=== PATIENT | female | born 1985 | race Caucasian/White ===

== ENCOUNTER 2019-02-21 12:30 | Emergency (ER) | payer MEDICAID, OTHER ==
[2019-02-21 12:31] VITALS: BMI 29.7
[2019-02-21] MEDS ORDERED: Sodium Chloride 0.9% 500 ML IV ONE (13:04)
[2019-02-21] MEDS ORDERED: Dexamethasone 4 mg/1 ml IVP STA (13:05)
--- NOTE | 2019-02-21 13:12 | C.PDOC ---
History Of Present Illness 33 y/o female presents to ED complaining of a sore throat x4 days, progressively gotten worse over the past 2 days, associated with fever, difficulty swallowing, and swelling of the neck. Patient denies vomiting, diarrhea, shortness of breath, or chest pain. Time Seen by Provider: 02/21/19 12:53 Chief Complaint (Nursing): ENT Problem History Per: Patient History/Exam Limitations: None Onset/Duration Of Symptoms: Days, Persistent Current Symptoms Are (Timing): Worse Pain Scale Rating Of: 8 Anticoagulant/Antiplatlet Use?: No Past Medical History Reviewed: Historical Data, Nursing Documentation, Vital Signs Vital Signs: Last Vital Signs Temp 100.2 F H 02/21/19 12:38 Pulse 109 H 02/21/19 12:38 Resp 20 02/21/19 12:38 BP 152/88 H 02/21/19 12:38 Pulse Ox 98 02/21/19 12:38 - Medical History PMH: No Chronic Diseases Family History: States: No Known Family Hx - Social History Hx Alcohol Use: Yes Hx Substance Use: Yes - Immunization History Hx Tetanus Toxoid Vaccination: No Hx Influenza Vaccination: No Hx Pneumococcal Vaccination: No Review Of Systems Except As Marked, All Systems Reviewed And Found Negative. Constitutional: Positive for: Fever ENT: Positive for: Throat Pain (Sore throat), Other (Difficulty swallowing) Cardiovascular: Negative for: Chest Pain Respiratory: Negative for: Shortness of Breath Gastrointestinal: Negative for: Vomiting, Diarrhea Musculoskeletal: Positive for: Other (Neck swelling) Physical Exam - Physical Exam Appears: Non-toxic, No Acute Distress Skin: Warm, Dry, No Rash Head: Atraumatic, Normacephalic Eye(s): bilateral: Normal Inspection Ear(s): Bilateral: Normal Oral Mucosa: Moist Throat: Other (Moderate swelling, erythema, and tenderness to the right to nsillar, (+)uvula deviation) Neck: Normal ROM, Supple Lymphatic: Other ((+) swollen anterior cervical lymphadenopathy) Chest: Symmetrical, No Tenderness Cardiovascular: Rhythm Regular, No Friction Rub, No Murmur Respiratory: Normal Breath Sounds, No Rales, No Rhonchi, No Wheezing Gastrointestinal/Abdominal: Bowel Sounds (active), Soft, No Tenderness Back: Normal Inspection, No CVA Tenderness Extremity: Normal ROM, No Tenderness, No Swelling Extremity: Bilateral: Atraumatic, Normal ROM Neurological/Psych: Oriented x3, Normal Speech, Normal Motor Gait: Steady ED Course And Treatment - Laboratory Results Result Diagrams: 02/21/19 13:27 02/21/19 13:28 O2 Sat by Pulse Oximetry: 98 (RA) Pulse Ox Interpretation: Normal - CT Scan/US Soft Tissue Neck CT Other Rad Studies (CT/US): Read By Radiologist, Radiology Report Reviewed CT/US Interpretation: FINDINGS: NASOPHARYNX: Unremarkable. SUPRAHYOID NECK: There is moderate enlargement of the palatine and lingular tonsils suggestive of tonsillitis. No evidence of peritonsillar abscess. No evidence of abscess formation in the naso-oropharynx. Mild thickening of the epiglottic and aryepiglottic folds noted. INFRAHYOID NECK: Unremarkable larynx, hypopharynx, and supraglottic space. Vocal cords intact. MASS: None. GLANDS: Parotid and submandibular glands unremarkable. Normal size thyroid gland, without nodule. LYMPH NODES: Mildly enlarged level 2 lymph nodes noted bilaterally likely reactive from tonsillitis. CERVICAL SPINE: No fracture or focal lesion. VASCULAR STRUCTURES: Unremarkable. OTHER FINDINGS: None. IMPRESSION: Findings suggestive of tonsillitis. No evidence of peritonsillar abscess or fluid collection. Mildly enlarged reactive lymph nodes at mid to upper neck. Medical Decision Making Medical Decision Making: Plan: --Soft Neck CT --Labs --Decadron 10 mg IVP --IV fluids --Toradol [address] scan was ordered for r/o ravinder-tonsillar abscess. CT scan shows only tonsillitis Results were discussed with the patient. On re-exam, the patient reports improvement of symptoms. Lungs are CTA, heart is RRR, abdomen is soft, non- tender and the patient is tolerating Po well. Pt is ambulatory in the ED with steady gait. Follow up with the medical doctor within 1-2 days. return if worsened. Disposition - Disposition Referrals: Jg Christine MD [Staff Provider] - Disposition: HOME/ ROUTINE Disposition Time: 16:01 Condition: GOOD Additional Instructions: Follow up with the medical doctor within 1-2 days. return if worsened. Prescriptions: Clindamycin [Cleocin] 300 mg PO TID #30 cap Ibuprofen [Motrin] 1 tab PO TID PRN #30 tab PRN Reason: Pain predniSONE [Prednisone] 10 mg PO BID #10 tab Instructions: Sore Throat, Adult (DC) Forms: [facility] (Taiwanese), Work Excuse - Clinical Impression Clinical Impression: Tonsillitis - PA / OUTSOLE BEVELER / Resident Statement MD/DO has reviewed & agrees with the documentation as recorded. - Scribe Statement The provider has reviewed the documentation as recorded by the Scribe Madiha Sawyer All medical record entries made by the Ward[employer]rol were at my direction and personally dictated by me. I have reviewed the chart and agree that the record accurately reflects my personal performance of the history, physical exam, medical decision making, and the department course for this patient. I have also personally directed, reviewed, and agree with the discharge instructions and dis position.
[2019-02-21] MEDS ORDERED: Iodixanol 320 MG/ML 100 ML BOTTLE IV ONE (13:15)
[2019-02-21] MEDS ORDERED: Sodium Chloride 0.9% 1,000 ML ONE (13:23)
[2019-02-21 13:39] LABS: BASO # 0.1 K/uL (0.0-0.2); BASO % 0.4 % (0.0-2.0); EOS % 0.2 % (0.0-4.0); HEMOGLOBIN 14.1 g/dL (11.0-16.0); LYMPH # 1.9 K/uL (1.0-4.3); LYMPH % 11.4 % (20.0-40.0); MEAN CELL VOLUME 87.5 fL (81.0-99.0); MEAN CORPUSCULAR HGB CONC 34.2 g/dL (33.0-37.0); MEAN PLATELET VOLUME 7.6 fL (7.2-11.7); MONO # 1.9 K/uL (0.0-0.8); MONO % 11.4 % (0.0-10.0); NEUT % 76.6 % (50.0-75.0); RBC 4.71 Mil/uL (3.80-5.20); RED CELL DISTRIBUTION WIDTH 12.9 % (11.5-14.5)
[2019-02-21 13:43] LABS: ALB/GLOB RATIO 1.4 (1.0-2.1); ALBUMIN 4.5 g/dL (3.5-5.0); ALT/SGPT 7 U/L (9-52); AST/SGOT 21 U/L (14-36); BLOOD UREA NITROGEN 6 mg/dL (7-17); GFR NON-AFRICAN AMERICAN > 60
--- NOTE | 2019-02-21 15:06 | CT ---
Date of service: 02/21/2019 PROCEDURE: CT NECK WITH CONTRAST HISTORY: sore throat, r/o ravinder-tonsillar abscess COMPARISON: None available. TECHNIQUE: CT of the neck with intravenous contrast. Coronal and sagittal reformats generated. Intravenous contrast dose: 100 mL of Visipaque 320 intravenously. Radiation dose: Total exam DLP = 377.53 mGy-cm. This CT exam was performed using one or more of the following dose reduction techniques: Automated exposure control, adjustment of the mA and/or kV according to patient size, and/or use of iterative reconstruction technique. FINDINGS: NASOPHARYNX: Unremarkable. SUPRAHYOID NECK: There is moderate enlargement of the palatine and lingular tonsils suggestive of tonsillitis. No evidence of peritonsillar abscess. No evidence of abscess formation in the naso-oropharynx. Mild thickening of the epiglottic and aryepiglottic folds noted. INFRAHYOID NECK: Unremarkable larynx, hypopharynx, and supraglottic space. Vocal cords intact. MASS: None. GLANDS: Parotid and submandibular glands unremarkable. Normal size thyroid gland, without nodule. LYMPH NODES: Mildly enlarged level 2 lymph nodes noted bilaterally likely reactive from tonsillitis. CERVICAL SPINE: No fracture or focal lesion. VASCULAR STRUCTURES: Unremarkable. OTHER FINDINGS: None. IMPRESSION: Findings suggestive of tonsillitis. No evidence of peritonsillar abscess or fluid collection. Mildly enlarged reactive lymph nodes at mid to upper neck.
[2019-02-21 16:04] VITALS: BP 104/60; PULSE 78; RESP 18; TEMP 98.6
[2019-02-21 16:05] VITALS: O2SAT 98
== END 2019-02-21 16:21 | disposition home or self-care (01) ==
LOC: C.ER 12:30
DX: J03.90 Acute tonsillitis, unspecified (principal); F17.210 Nicotine dependence, cigarettes, uncomplicated
CPT/HCPCS: 70491; 80053; 85025; 96361; 96365; 96375; 99284; J1100; J1885; J7040; Q9967